=== PATIENT | female | born 1990 | race Hispanic/Latino ===

== ENCOUNTER 2022-01-02 16:34 | Emergency (ER) | payer MEDICAID ==
[~2022-01-02] VITALS: Ht 157.5 cm; Wt 95.3 kg
[2022-01-02 17:47] LABS: BASOPHILS % (AUTO) 0.5 % (0.0-5.0); EOSINOPHILS % (AUTO) 2.9 % (0.0-8.0); HEMATOCRIT 39.8 % (36-48); LYMPHOCYTES % (AUTO) 29.4 % (21.0-51.0); MEAN CORPUSCULAR HEMOGLOBIN 30.8 pg (27.0-33.0); MEAN CORPUSCULAR HGB CONC 34.9 g/dL (32.0-36.0); MEAN CORPUSCULAR VOLUME 88.2 fL (79-99); MONOCYTES % (AUTO) 8.2 % (3.0-13.0); NEUTROPHILS % (AUTO) 58.6 % (40.0-77.0); PLATELET COUNT (AUTO) 391 K/uL (130-400); RED BLOOD CELL COUNT(AUTO) 4.51 MIL/uL (4.00-5.50); RED CELL DISTRIBUTION WIDTH 12.7 % (11.0-15.5); WHITE BLOOD COUNT (AUTO) 10.3 K/uL (4.8-10.8)
[2022-01-02 17:48] LABS: APPEARANCE,URINE CLEAR (CLEAR); BILIRUBIN,URINE NEGATIVE (NEGATIVE); COLOR,URINE LIGHT-YELLOW (YELLOW); GLUCOSE, URINE (UA) NEGATIVE (NEGATIVE); KETONES,URINE NEGATIVE (NEGATIVE); LEUKOCYTE ESTERASE ,URINE NEGATIVE Leu/uL (NEGATIVE); NITRATE,URINE NEGATIVE (NEGATIVE); OCCULT BLOOD,URINE NEGATIVE (NEGATIVE); PH,URINE 5.5 (5.0-8.0); PROTEIN,URINE NEGATIVE (NEGATIVE); UROBILINOGEN,URINE 0.2 mg/dL (0.2-1.0)
[2022-01-02 17:49] LABS: HCG,QUALITATIVE URINE POSITIVE (NEGATIVE)
[2022-01-02 17:54] LABS: CREATININE 0.6 mg/dL (0.5-1.5); POTASSIUM 3.5 mmol/L (3.5-5.1)
[2022-01-02 17:56] LABS: BACTERIA,URINE RARE /HPF (None Seen); MUCUS,URINE RARE LPF (None Seen); RBC,URINE 0-1 /HPF (0-1); SQUAMOUS EPITHELIAL CELL,UR FEW /HPF (0-2); WBC,URINE 0-1 /HPF (0-1)
[2022-01-02 18:24] LABS: ALBUMIN 3.3 g/dL (3.5-5.0); TOTAL PROTEIN, SERUM 7.5 g/dL (6.0-8.3)
[2022-01-02 18:27] VITALS: BP 118/68
== END 2022-01-02 18:56 | disposition home or self-care (01) ==
LOC: EDH 16:34
DX: O20.0 Threatened abortion (principal); Z3A.16 16 weeks gestation of pregnancy
CPT/HCPCS: 36415; 76805; 80053; 81001; 81025; 84702; 85025; 86900; 86901

== ENCOUNTER 2024-06-20 10:01 | Emergency (ER) | payer MEDICAID, OTHER ==
[~2024-06-20] VITALS: Ht 160 cm; Wt 104.8 kg
[~2024-06-20 10:01] MED LIST: ACET-2079 PO; DOCU-116 PO; IBUP-2077 PO; PREN1TAB80 PO
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
--- NOTE | 2024-06-20 10:21 | NUR ---
ASSUMED CARE AT THIS TIME PT AOX4
[2024-06-20] MEDS: CYCLOBENZAPRINE HCL 10 MG TABLET PO ONE (10:30)
[2024-06-20] MEDS: acetaMINOPHEN 500 MG TABLET PO ONE (10:30)
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
[2024-06-20] MEDS ORDERED: IBUP-2077 PO (12:21)
[2024-06-20] MEDS ORDERED: CYCL-309 PO (12:21)
[2024-06-20 12:25] VITALS: BP 131/83; PULSE 76; RESP 18; TEMP 98.2; O2SAT 99
== END 2024-06-20 12:27 | disposition home or self-care (01) ==
LOC: EDH 10:01
DX: S16.1XXA Strain of muscle, fascia and tendon at neck level, initial encounter (principal); S39.012A Strain of muscle, fascia and tendon of lower back, initial encounter; V89.2XXA Person injured in unspecified motor-vehicle accident, traffic, initial encounter; Y93.I9 Activity, other involving external motion; Y92.89 Other specified places as the place of occurrence of the external cause; Y99.8 Other external cause status
CPT/HCPCS: 36415; 72100; 72125; 84703; 99284